=== PATIENT | female | born 1955 | race Caucasian/White ===

== ENCOUNTER → 2023-09-18 | Outpatient (CLI) | payer MEDICARE ==
[~2023-09-18] MED LIST: PROHANCE 279.3MG/ML 15ML VIAL As Ordered ONE
[2023-09-18 10:05] VITALS: TEMP 98.2
[2023-09-18 12:10] VITALS: BP 138/84; O2SAT 96
== END ==
LOC: M RADPRO 10:00
PROVIDERS: ATTEND Psychiatry & Neurology Neurology
DX: G47.51 Confusional arousals (principal); R44.1 Visual hallucinations; R44.0 Auditory hallucinations
CPT/HCPCS: 70553; A9576